=== PATIENT | female | born 1950 | race Caucasian/White ===

== ENCOUNTER 2017-03-28 07:25 | Emergency (ER) | payer MEDICARE, MEDICAID ==
--- NOTE | 2017-03-28 08:26 | EDM.PDOC ---
ED HPI GENERAL MEDICAL PROBLEM - General Chief Complaint: General Stated Complaint: NECK/SHOULDER PAIN Time Seen by Provider: 03/28/17 08:21 Source of Information: Reports: Patient History Limitations: Reports: No Limitations - History of Present Illness INITIAL COMMENTS - FREE TEXT/NARRATIVE: 66-year-old female attends the ED with chief complaint of pain in her left posterior upper shoulder. Started her so ago was quite bad last night with sharp lancinating pains in this area reading towards her left neck. The involve the anterior lateral aspect of her neck and radiate up towards her mandible but not above the mandible. Some of the pains radiating to the left upper extremity as well. The do not seem to radiate through to the chest. Patient reports that she is chronically dyspneic. She states she scheduled for CT of her chest for follow-up of a pulmonary nodule diagnosed 6 months ago. She has never been a smoker but both her parents were heavy smokers. She denies cough or sputum production fever or chills. Patient has scoliosis of her thoracic spine. Chronic generalized arthritis with previous total knees and hips bilaterally. Onset: Gradual Onset Date: 03/26/17 Duration: Day(s): Location: Reports: Other (Left posterior shoulder.) Quality: Reports: Ache, Sharp, Stabbing, Other Severity: Moderate (Recurrent sharp stabbing lancinating type pain.) Improves with: Reports: None Worsens with: Reports: Rest Context: Denies: Activity, Exercise, Lifting, Sick Contact, Trauma, Other Associated Symptoms: Reports: Malaise, Shortness of Breath. 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) (Took an Ecotrin tablet during the night.) left posterior shoulder Pain Score (Numeric/FACES): 1 - Related Data Allergies Allergy/AdvReac Type Severity Reaction Status Date / Time No Known Allergies Allergy Verified 03/28/17 07:40 Home Meds: Home Meds Aspirin 325 mg PO DAILY 03/28/17 [History] Diabetic Medication 1 injection SUBCUT ASDIRECTED 03/28/17 [History] Hydrochlorothiazide [Hydrochlorothiazide] 1 tab PO DAILY 03/28/17 [History] Lisinopril [Lisinopril] 1 tab PO DAILY 03/28/17 [History] Ranitidine [Zantac] 150 mg PO BID 03/28/17 [History] atorvaSTATin [Lipitor] 20 mg PO DAILY 03/28/17 [History] traMADol HCl [Tramadol HCl] 50 mg PO Q6H PRN #24 tablet 03/28/17 [Rx] Past Medical History HEENT History: Reports: Cataract, Impaired Vision Cardiovascular History: Reports: High Cholesterol, Hypertension, SOB on Exertion , Other (See Below) Other Cardiovascular History: chronic edema Respiratory History: Reports: Other (See Below) Other Respiratory History: states allergies Gastrointestinal History: Reports: Gastritis, GERD 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, Other (See Below) Other OB/BYN History: ovary removal, tubal ligation, bladder repair Musculoskeletal History: Reports: Arthritis, Back Pain, Chronic, Other (See Below) Other Musculoskeletal History: scoliosis Endocrine/Metabolic History: Reports: Diabetes, Type II, Obesity/BMI 30+ - Past Surgical History HEENT Surgical History: Reports: Cataract Surgery GI Surgical History: Reports: Cholecystectomy Musculoskeletal Surgical History: Reports: Other (See Below) Other Musculoskeletal Surgeries/Procedures:: pelvis surgery Social & Family History - Family History Family Medical History: Noncontributory - Tobacco Use Smoking Status *Q: Never Smoker Second Hand Smoke Exposure: No - Caffeine Use Caffeine Use: Reports: Soda - Recreational Drug Use Recreational Drug Use: No - Living Situation & Occupation Living situation: Reports: Occupation: Retired ED ROS GENERAL - Review of Systems Review Of Systems: See Below Constitutional: Reports: Malaise, Fatigue. Denies: Fever, Chills, Decreased Appetite, Weight Loss HEENT: Reports: No Symptoms Respiratory: Reports: No Symptoms (Chronically.), Shortness of Breath Cardiovascular: Reports: No Symptoms, Blood Pressure Problem (Chronically.), Dyspnea on Exertion. Denies: Claudication, Edema, Lightheadedness, Orthopnea ( Chronic hypertension), Palpitations Endocrine: Reports: No Symptoms GI/Abdominal: Reports: No Symptoms : Reports: No Symptoms Musculoskeletal: Reports: Shoulder Pain, Other (Has full unopposed range of motion of her) Skin: Reports: No Symptoms Neurological: Reports: No Symptoms Psychiatric: Reports: No Symptoms Hematologic/Lymphatic: Reports: No Symptoms ED EXAM, GENERAL - Physical Exam Exam: See Below (Has full unopposed range of motion of her arms.) Exam Limited By: No Limitations General Appearance: Alert, WD/WN, No Apparent Distress Throat/Mouth: Normal Inspection, Normal Lips, Normal Oropharynx Head: Atraumatic, Normocephalic Neck: Normal Inspection, Supple, Non-Tender, Full Range of Motion. No: Lymphadenopathy (L), Lymphadenopathy (R) Respiratory/Chest: No Respiratory Distress, Lungs Clear, Normal Breath Sounds, Chest Non-Tender Cardiovascular: Normal Peripheral Pulses, Regular Rate, Rhythm, No Edema, No Gallop, No Murmur Peripheral Pulses: 1+: Posterior Tibial (L), Posterior Tibial (R), Dorsalis Pedis (L), Dorsalis Pedis (R) GI/Abdominal: Normal Bowel Sounds, Soft, Non-Tender, No Organomegaly, Other ( Moderately obese.) Back Exam: Other (Scoliosis of thoracic spine spine concave to the). No: CVA Tenderness (L) ( right.), CVA Tenderness (R) Extremities: Normal Inspection, Normal Range of Motion, Non-Tender, No Pedal Edema, Other (His full unopposed range of motion of both shoulders. Pain is localized to the superior aspect of the left upper back in the distribution of the rhomboid muscle. Range of motion of her cervical spine is fair although she has loss of 5 of flexion bilaterally as well as extension.) Neurological: Alert, Oriented, CN II-XII Intact, Normal Cognition Psychiatric: Normal Affect, Normal Mood Skin Exam: Warm, Dry, Intact, Normal Color, No Rash EKG INTERPRETATION EKG Date: 03/28/17 Time: 09:35 Rhythm: NSR Rate (Beats/Min): 82 Hext: Normal P-Wave: Present QRS: Other (Slightly decreased voltage in the limb leads.) ST-T: Normal QT: Normal EKG Interpretation Comments: Other than occasional PACs this is a normal ECG without any signs of ischemia. Slightly decreased voltage in the limb leads. Course - Vital Signs Last Recorded V/S: Last Vital Signs Temp 36.4 C 03/28/17 07:31 Pulse 85 03/28/17 09:00 Resp 16 03/28/17 07:31 BP 157/75 H 03/28/17 09:00 Pulse Ox 100 03/28/17 07:31 - Orders/Labs/Meds Labs: Laboratory Tests 03/28/17 03/28/17 Range/Units 09:35 09:35 WBC 8.90 (3.98-10.04) K/mm3 RBC 4.55 (3.98-5.22) M/mm3 Hgb 13.5 (11.2-15.7) gm/L Hct 41.4 (34.1-44.9) % MCV 91.0 (79.4-94.8) fl MCH 29.7 (25.6-32.2) pg MCHC 32.6 (32.2-35.5) g/dl RDW Std Deviation 43.5 (36.4-46.3) fL Plt Count 321 (182-369) K/mm3 MPV 10.4 (9.4-12.3) fl Neutrophils % (Manual) 50 (40-60) % Band Neutrophils % 0 (0-10) % Lymphocytes % (Manual) 46 H (20-40) % Atypical Lymphs % 0 % Monocytes % (Manual) 2 (2-10) % Eosinophils % (Manual) 0 L (0.7-5.8) % Basophils % (Manual) 2 H (0.1-1.2) Platelet Estimate Adequate RBC Morph Comment Normal Sodium 144 (136-145) mEq/L Potassium 3.8 (3.5-5.1) mEq/L Chloride 106 (98-107) mEq/L Carbon Dioxide 26 (21-32) mEq/L Anion Gap 15.8 H (5-15) BUN 15 (7-18) mg/dL Creatinine 0.8 (0.55-1.02) mg/dL Est Cr Clr Drug Dosing 72.29 mL/min Estimated GFR (MDRD) > 60 (>60) mL/min BUN/Creatinine Ratio 18.8 H (14-18) Glucose 187 H (80-115) mg/dL Calcium 9.5 (8.5-10.1) mg/dL Total Bilirubin 0.4 (0.2-1.0) mg/dL AST 38 H (15-37) U/L ALT 36 (14-59) U/L Alkaline Phosphatase 159 H (46-116) U/L CK-MB (CK-2) < 0.5 (0-3.6) ng/ml Troponin I < 0.017 (0.00-0.056) ng/mL Total Protein 7.6 (6.4-8.2) g/dl Albumin 3.6 (3.4-5.0) g/dl Globulin 4.0 gm/dL Albumin/Globulin Ratio 0.9 L (1-2) - Radiology Interpretation Free Text/Narrative:: 66-year-old female brought to the ED for evaluation of left upper shoulder pain. Examinations suggesting musculoskeletal source or pain and no cardiac history or evidence of involvement at this time. Lungs are clear. Plan x-ray of the left shoulder to be done. - Re-Assessments/Exams Free Text/Narrative Re-Assessment/Exam: 03/28/17 09:36 patient advised of the x-ray of her left shoulder is within normal limits. I do see some degenerative changes in her cervical spine. She reports now that there seems to be more pressure in her central chest and she is worried about cardiac etiology. She lives quite far to [facility] and is apprehensive in this regard. I therefore an ECG will be performed as well as lab work to rule out any cardiac illness which I'm very doubtful low. Be very a characteristic of cardiac etiology. 03/28/17 11:14 ECG reveals sinus rhythm at 82/m there is the occasional PAC appreciated. This is otherwise a normal ECG. Labs reveal a white count of 8.90 with a normal differential of 50% neutrophils and 46% lymphocytes. Hemoglobin is 13.5 hematocrit is 41.4 platelets are 321,000. Sodium 144 potassium 3.8 chloride 16 bicarbonate is 26 and a gap is 15.8. Blood sugar is 187. AST is 38 ALT is 36. Alk phosphatase mildly elevated 159 bilirubin normal at 0.4. CK-MB fraction is 0.5 troponin is less than 0.017. 03/28/17 11:35 all the cardiac markers came back normal as did the chest x- ray. There is no evidence of any heart related illness as I suspected clinically. Patient reassured at length. patient has a history of gastritis and does not do well with NSAIDs. I will therefore give her tramadol 50 mg every 6 hours. For pain relief 20 tabs. Departure - Departure Time of Disposition: 11:45 Disposition: Home, Self-Care 01 Condition: Fair Clinical Impression: Upper back pain on left side - Discharge Information Prescriptions: traMADol HCl [Tramadol HCl] 50 mg PO Q6H PRN #24 tablet PRN Reason: Pain left shoulder Instructions: Back Pain, Adult, [id number] Referrals: Kamla Peña MD [Primary Care Provider] - Forms: ED Department Discharge Additional Instructions: Evaluation in the emergency room today in regards to development of left upper posterior shoulder pain which appears to be musculoskeletal in origin. Appears to be coming from the rhomboid muscle up underneath the trapezius muscle and does radiate towards the left side of the neck intermittently. Cardiac workup reveals no evidence of heart related illness. X-ray of the left shoulder shows minor degenerative changes in the true shoulder joint but nothing abnormal in the shoulder blade which is the area of your pain. Therefore treatment is to be heat to the area one half hour out of every 4 hours until better. Tramadol 50 mg tablet every 6 hours needed for pain relief. Continue all other medications as per your usual. Follow-up with personal care physician if any further problem 's occur.
--- NOTE | 2017-03-28 10:53 | CR ---
Left shoulder: Four views of the left shoulder were obtained. Comparison: No prior shoulder study. Joint space narrowing and mild inferior and superior spurring is seen within the acromioclavicular joint. Ossification is noted within portions of the coracoclavicular ligament. Mild deformity is noted within the shaft of the clavicle likely representing old healed fracture. Minimal inferior spur is noted off the humeral head. No acute fracture, dislocation or other bony abnormality is seen. Impression: 1. Slight degenerative change as described above. Other incidental findings. Diagnostic code #2
== END 2017-03-28 12:05 | disposition home or self-care (01) ==
LOC: JD.ED 07:25
DX: M54.6 Pain in thoracic spine (principal); I10 Essential (primary) hypertension; E78.00 Pure hypercholesterolemia, unspecified; E11.9 Type 2 diabetes mellitus without complications; Z79.84 Long term (current) use of oral hypoglycemic drugs; Z79.82 Long term (current) use of aspirin; Z79.899 Other long term (current) drug therapy
CPT/HCPCS: 36415; 73030-26-LT; 73030-LT; 80053; 82553; 84484; 85025; 93005; 93010; 99283; 99284-25

== ENCOUNTER 2017-05-23 08:06 | Emergency (ER) | payer MEDICARE, MEDICAID ==
--- NOTE | 2017-05-23 09:56 | EDM.PDOC ---
ED HPI GENERAL MEDICAL PROBLEM - General Chief Complaint: Diabetic Complaint Stated Complaint: HIGH BLOOD SUGAR Time Seen by Provider: 05/23/17 08:20 Source of Information: Reports: Patient History Limitations: Reports: No Limitations - History of Present Illness INITIAL COMMENTS - FREE TEXT/NARRATIVE: The patient presents with elevated blood sugar. She is a type II diabetic and she was on an injectable medicine weakly but she ran out and it is very expensive. She noticed her blood sugars are creeping up and last night her sugar was 223. She took some metformin she had at home. She has been feeling tired. She denies polyuria and polydypsia. She denies fever, chills, cough, chest pain, shortness of breath, abdominal pain, nausea or vomiting. She has an appointment with her doctor on Saturday. Her doctor is Dr Peña at our clinic. Onset: Gradual Duration: Day(s): Severity: Mild Improves with: Reports: None Worsens with: Reports: None Associated Symptoms: Reports: No Other Symptoms - Related Data Allergies Allergy/AdvReac Type Severity Reaction Status Date / Time No Known Allergies Allergy Verified 05/23/17 08:20 Home Meds: Home Meds Hydrochlorothiazide [Hydrochlorothiazide] 25 mg PO DAILY 03/28/17 [History] Lisinopril [Lisinopril] 5 mg PO DAILY 03/28/17 [History] Ranitidine [Zantac] 150 mg PO BID PRN 03/28/17 [History] atorvaSTATin [Lipitor] 20 mg PO DAILY 03/28/17 [History] Cholecalciferol (Vitamin D3) [Vitamin D3] 1,000 unit PO DAILY 05/23/17 [History] Exenatide Microspheres [Bydureon] 2 mg SUBCUT WEEKLY 05/23/17 [History] Potassium Chloride [Klor-Con M20] 20 meq PO DAILY 05/23/17 [History] metFORMIN [Glucophage XR] 500 mg PO BID 05/23/17 [History] Past Medical History HEENT History: Reports: Cataract, Impaired Vision Cardiovascular History: Reports: High Cholesterol, Hypertension, SOB on Exertion , Other (See Below) Other Cardiovascular History: chronic edema Respiratory History: Reports: Other (See Below) Other Respiratory History: states allergies Gastrointestinal History: Reports: Gastritis, GERD 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, Other (See Below) Other OB/BYN History: ovary removal, tubal ligation, bladder repair Musculoskeletal History: Reports: Arthritis, Back Pain, Chronic, Other (See Below) Other Musculoskeletal History: scoliosis Endocrine/Metabolic History: Reports: Diabetes, Type II, Obesity/BMI 30+ - Past Surgical History HEENT Surgical History: Reports: Cataract Surgery GI Surgical History: Reports: Cholecystectomy Musculoskeletal Surgical History: Reports: Other (See Below) Other Musculoskeletal Surgeries/Procedures:: pelvis surgery Social & Family History - Family History Family Medical History: Noncontributory - Tobacco Use Smoking Status *Q: Never Smoker Second Hand Smoke Exposure: No - Caffeine Use Caffeine Use: Reports: Coffee - Recreational Drug Use Recreational Drug Use: No - Living Situation & Occupation Living situation: Reports: Occupation: Retired ED ROS GENERAL - Review of Systems Review Of Systems: See Below Constitutional: Reports: Weakness. Denies: Fever, Chills HEENT: Reports: No Symptoms Respiratory: Reports: No Symptoms Cardiovascular: Reports: No Symptoms Endocrine: Reports: No Symptoms GI/Abdominal: Reports: No Symptoms : Reports: No Symptoms Musculoskeletal: Reports: No Symptoms Neurological: Reports: No Symptoms ED EXAM GENERAL NO PERIP PULSE - Physical Exam Exam: See Below Exam Limited By: No Limitations General Appearance: Alert, No Apparent Distress Ears: Normal External Exam Nose: Normal Inspection Head: Atraumatic, Normocephalic Neck: Normal Inspection Respiratory/Chest: No Respiratory Distress, Lungs Clear, Normal Breath Sounds Cardiovascular: Regular Rate, Rhythm, No Edema, No Murmur GI/Abdominal: Soft, Non-Tender, No Organomegaly, No Mass Back Exam: Normal Inspection Extremities: Normal Inspection Neurological: Alert, Oriented, No Motor/Sensory Deficits Course - Vital Signs Last Recorded V/S: Last Vital Signs Temp 97.9 F 05/23/17 08:11 Pulse 91 05/23/17 08:11 Resp 16 05/23/17 08:11 BP 135/79 05/23/17 08:11 Pulse Ox 97 05/23/17 08:11 - Orders/Labs/Meds Orders: Active Orders 24 hr Category Date Time Status Cardiac Monitoring [RC] . DIRECTED Care 05/23/17 08:23 Active Labs: Laboratory Tests 05/23/17 05/23/17 05/23/17 Range/Units 08:12 08:40 08:40 WBC 8.63 (3.98-10.04) K/mm3 RBC 4.51 (3.98-5.22) M/mm3 Hgb 13.4 (11.2-15.7) gm/L Hct 41.4 (34.1-44.9) % MCV 91.8 (79.4-94.8) fl MCH 29.7 (25.6-32.2) pg MCHC 32.4 (32.2-35.5) g/dl RDW Std Deviation 43.1 (36.4-46.3) fL Plt Count 339 (182-369) K/mm3 MPV 9.8 (9.4-12.3) fl Neut % (Auto) 51.9 (34.0-71.1) % Lymph % (Auto) 38.6 (19.3-51.7) % P[place] % (Auto) 4.6 L (4.7-12.5) % Eos % (Auto) 4.5 (0.7-5.8) Baso % (Auto) 0.3 (0.1-1.2) % Neut # (Auto) 4.47 (1.56-6.13) K/mm3 Lymph # (Auto) 3.33 (1.18-3.74) K/mm3 P[place] # (Auto) 0.40 H (0.24-0.36) K/mm3 Eos # (Auto) 0.39 H (0.04-0.36) K/mm3 Baso # (Auto) 0.03 (0.01-0.08) K/mm3 Sodium 140 (136-145) mEq/L Potassium 4.2 (3.5-5.1) mEq/L Chloride 103 (98-107) mEq/L Carbon Dioxide 27 (21-32) mEq/L Anion Gap 14.2 (5-15) BUN 15 (7-18) mg/dL Creatinine 0.9 (0.55-1.02) mg/dL Est Cr Clr Drug Dosing 66.49 mL/min Estimated GFR (MDRD) > 60 (>60) mL/min BUN/Creatinine Ratio 16.7 (14-18) Glucose 156 H (80-115) mg/dL POC Glucose 157 H (80-115) mg/dL Hemoglobin A1c (4.50-6.20) % Calcium 9.1 (8.5-10.1) mg/dL Total Bilirubin 0.4 (0.2-1.0) mg/dL AST 39 H (15-37) U/L ALT 51 (14-59) U/L Alkaline Phosphatase 213 H (46-116) U/L Total Protein 7.7 (6.4-8.2) g/dl Albumin 3.6 (3.4-5.0) g/dl Globulin 4.1 gm/dL Albumin/Globulin Ratio 0.9 L (1-2) 05/23/17 Range/Units 08:40 WBC (3.98-10.04) K/mm3 RBC (3.98-5.22) M/mm3 Hgb (11.2-15.7) gm/L Hct (34.1-44.9) % MCV (79.4-94.8) fl MCH (25.6-32.2) pg MCHC (32.2-35.5) g/dl RDW Std Deviation (36.4-46.3) fL Plt Count (182-369) K/mm3 MPV (9.4-12.3) fl Neut % (Auto) (34.0-71.1) % Lymph % (Auto) (19.3-51.7) % Pinal % (Auto) (4.7-12.5) % Eos % (Auto) (0.7-5.8) Baso % (Auto) (0.1-1.2) % Neut # (Auto) (1.56-6.13) K/mm3 Lymph # (Auto) (1.18-3.74) K/mm3 Pinal # (Auto) (0.24-0.36) K/mm3 Eos # (Auto) (0.04-0.36) K/mm3 Baso # (Auto) (0.01-0.08) K/mm3 Sodium (136-145) mEq/L Potassium (3.5-5.1) mEq/L Chloride (98-107) mEq/L Carbon Dioxide (21-32) mEq/L Anion Gap (5-15) BUN (7-18) mg/dL Creatinine (0.55-1.02) mg/dL Est Cr Clr Drug Dosing mL/min Estimated GFR (MDRD) (>60) mL/min BUN/Creatinine Ratio (14-18) Glucose (80-115) mg/dL POC Glucose (80-115) mg/dL Hemoglobin A1c 7.80 H (4.50-6.20) % Calcium (8.5-10.1) mg/dL Total Bilirubin (0.2-1.0) mg/dL AST (15-37) U/L ALT (14-59) U/L Alkaline Phosphatase (46-116) U/L Total Protein (6.4-8.2) g/dl Albumin (3.4-5.0) g/dl Globulin gm/dL Albumin/Globulin Ratio (1-2) - Re-Assessments/Exams Free Text/Narrative Re-Assessment/Exam: 05/23/17 09:56 Bed side glucose was 157. Her labs show a normal CBC and her blood sugar was 156. Her AST was 39. His alk phos was elevated at 213. Her Hgb A1C was elevated at 7.8. Departure - Departure Time of Disposition: 10:15 Disposition: Home, Self-Care 01 Condition: Good Clinical Impression: Hyperglycemia - Discharge Information Instructions: Type 2 Diabetes Mellitus, Adult, Ofcy-za-Bura Referrals: Kamla Peña MD [Primary Care Provider] - Forms: ED Department Discharge Additional Instructions: Take your medication as prescribed. Take the metformin 500mg by mouth 2 times per day. Follow up with Dr Peña next week. Please return if you are worse or if you blood sugars are consistently above 300. - My Orders Last 24 Hours: My Active Orders 05/23/17 08:23 Cardiac Monitoring [RC] . DIRECTED - Assessment/Plan Last 24 Hours: My Active Orders 05/23/17 08:23 Cardiac Monitoring [RC] . DIRECTED
== END 2017-05-23 10:32 | disposition home or self-care (01) ==
LOC: JD.ED 08:06
DX: E11.65 Type 2 diabetes mellitus with hyperglycemia (principal); E78.00 Pure hypercholesterolemia, unspecified; I10 Essential (primary) hypertension; Z79.899 Other long term (current) drug therapy; Z79.84 Long term (current) use of oral hypoglycemic drugs
CPT/HCPCS: 36415; 80053; 82962; 83036; 85025; 99283

== ENCOUNTER 2017-09-16 09:37 | Emergency (ER) | payer MEDICARE, OTHER ==
[2017-09-16] MEDS ORDERED: Sodium Chloride 0.9% 10 ML Syringe FLUSH PRN (10:11)
[2017-09-16] MEDS ORDERED: Aspirin 81 MG Tab.Chew ONE (10:15)
[2017-09-16] MEDS ORDERED: Aspirin 81 MG Tab.Chew PO ONE (10:17)
--- NOTE | 2017-09-16 10:31 | EDM.PDOC ---
ED HPI GENERAL MEDICAL PROBLEM - General Chief Complaint: Chest Pain Stated Complaint: [facility] Time Seen by Provider: 09/16/17 10:31 - History of Present Illness INITIAL COMMENTS - FREE TEXT/NARRATIVE: 66-year-old female brought in by EMS with chest pain. Patient developed a burning-like sensation in the substernal area. She awoke this way. The patient's had a history of reflux in the past but this feels different. This pain does not radiate into her neck or arms remained substernal. Upon arrival here her pain is nearly gone she has a mild discomfort that she describes as a burning yet different from reflux she's had the past. She has no history of coronary artery disease significant pulmonary disease or chest problems. - Related Data Allergies Allergy/AdvReac Type Severity Reaction Status Date / Time No Known Allergies Allergy Verified 09/16/17 09:44 Home Meds: Home Meds Hydrochlorothiazide 25 mg PO DAILY 03/28/17 [History] Lisinopril 5 mg PO DAILY 03/28/17 [History] Ranitidine [Zantac] 150 mg PO BID PRN 03/28/17 [History] atorvaSTATin [Lipitor] 20 mg PO DAILY 03/28/17 [History] Cholecalciferol (Vitamin D3) [Vitamin D3] 1,000 unit PO DAILY 05/23/17 [History] metFORMIN [Glucophage XR] 500 mg PO TID 05/23/17 [History] Past Medical History HEENT History: Reports: Cataract, Impaired Vision Cardiovascular History: Reports: High Cholesterol, Hypertension, SOB on Exertion , Other (See Below) Other Cardiovascular History: chronic edema Respiratory History: Reports: Other (See Below) Other Respiratory History: states allergies Gastrointestinal History: Reports: Gastritis, GERD 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, Other (See Below) Other OB/BYN History: ovary removal, tubal ligation, bladder repair Musculoskeletal History: Reports: Arthritis, Back Pain, Chronic, Other (See Below) Other Musculoskeletal History: scoliosis Endocrine/Metabolic History: Reports: Diabetes, Type II, Obesity/BMI 30+ - Past Surgical History HEENT Surgical History: Reports: Cataract Surgery GI Surgical History: Reports: Cholecystectomy Musculoskeletal Surgical History: Reports: Hip Replacement, Knee Replacement, Other (See Below) Other Musculoskeletal Surgeries/Procedures:: pelvis surgery Social & Family History - Family History Family Medical History: Noncontributory - Tobacco Use Smoking Status *Q: Never Smoker Second Hand Smoke Exposure: No - Caffeine Use Caffeine Use: Reports: Coffee - Recreational Drug Use Recreational Drug Use: No - Living Situation & Occupation Living situation: Reports: Occupation: Retired ED ROS GENERAL - Review of Systems Review Of Systems: See Below Constitutional: Reports: No Symptoms HEENT: Reports: No Symptoms Respiratory: Reports: No Symptoms Cardiovascular: Reports: Chest Pain Endocrine: Reports: No Symptoms GI/Abdominal: Reports: Other (Possible reflux no nausea vomiting diarrhea or constipation) : Reports: No Symptoms Musculoskeletal: Reports: No Symptoms Skin: Reports: No Symptoms Neurological: Reports: No Symptoms Psychiatric: Reports: No Symptoms Hematologic/Lymphatic: Reports: No Symptoms Immunologic: Reports: No Symptoms ED EXAM, GENERAL - Physical Exam Exam: See Below Exam Limited By: No Limitations General Appearance: Alert, No Apparent Distress Head: Atraumatic, Normocephalic Neck: Normal Inspection, Supple, Non-Tender, Full Range of Motion. No: Lymphadenopathy (L), Lymphadenopathy (R) Respiratory/Chest: No Respiratory Distress, Lungs Clear, Normal Breath Sounds Cardiovascular: Normal Peripheral Pulses, Regular Rate, Rhythm, No Edema, No JVD , No Murmur GI/Abdominal: Normal Bowel Sounds, Soft, Non-Tender Back Exam: Normal Inspection. No: CVA Tenderness (L), CVA Tenderness (R) Extremities: Normal Inspection, No Pedal Edema, Other (She has some discomfort with palpation she attributes this to her neuropathy) Neurological: Alert, Oriented, Normal Cognition Psychiatric: Normal Affect Skin Exam: Warm, Dry, Intact Lymphatic: No Adenopathy EKG INTERPRETATION EKG Date: 09/16/17 Rhythm: NSR [place]: Normal P-Wave: Present QRS: Normal ST-T: Other (Nonspecific nondiagnostic changes laterally most likely due to artifact) QT: Normal Comparison: No Change (Significant changes other than the comparison EKG from February of this last year had one PAC and less artifact) Course - Vital Signs Last Recorded V/S: Last Vital Signs Temp 36.9 C 09/16/17 09:48 Pulse 87 09/16/17 09:48 Resp 13 09/16/17 09:48 BP 151/75 H 09/16/17 09:48 Pulse Ox 100 09/16/17 09:48 - Orders/Labs/Meds Orders: Active Orders 24 hr Category Date Time Status Cardiac Monitoring [RC] . DIRECTED Care 09/16/17 10:08 Active EKG 12 Lead [EKG Documentation Completion] [RC] STAT Care 09/16/17 10:09 Active Sodium Chloride 0.9% [Saline Flush] Med 09/16/17 10:11 Active 10 ml FLUSH ASDIRECTED PRN Saline Lock Insert [OM.PC] Routine Oth 09/16/17 10:11 Ordered Medication Orders Sodium Chloride (Saline Flush) 10 ml FLUSH ASDIRECTED PRN PRN Reason: Keep Vein Open Last Admin: 09/16/17 10:15 Dose: 10 ml Labs: Laboratory Tests 09/16/17 09/16/17 09/16/17 Range/Units 10:00 10:00 10:00 WBC 10.03 (3.98-10.04) K/mm3 RBC 4.34 (3.98-5.22) M/mm3 Hgb 13.0 (11.2-15.7) gm/L Hct 40.3 (34.1-44.9) % MCV 92.9 (79.4-94.8) fl MCH 30.0 (25.6-32.2) pg MCHC 32.3 (32.2-35.5) g/dl RDW Std Deviation 43.4 (36.4-46.3) fL Plt Count 352 (182-369) K/mm3 MPV 10.4 (9.4-12.3) fl Neutrophils % (Manual) 59 (40-60) % Band Neutrophils % 0 (0-10) % Lymphocytes % (Manual) 33 (20-40) % Atypical Lymphs % 0 % Monocytes % (Manual) 1 L (2-10) % Eosinophils % (Manual) 6 H (0.7-5.8) % Basophils % (Manual) 1 (0.1-1.2) Platelet Estimate Adequate RBC Morph Comment Normal PT 10.2 (9.5-12.1) SECONDS INR 0.93 APTT 25 (24-31) SECONDS Sodium (136-145) mEq/L Potassium (3.5-5.1) mEq/L Chloride (98-107) mEq/L Carbon Dioxide (21-32) mEq/L Anion Gap (5-15) BUN (7-18) mg/dL Creatinine (0.55-1.02) mg/dL Est Cr Clr Drug Dosing mL/min Estimated GFR (MDRD) (>60) mL/min BUN/Creatinine Ratio (14-18) Glucose (80-115) mg/dL Calcium (8.5-10.1) mg/dL Total Bilirubin (0.2-1.0) mg/dL AST (15-37) U/L ALT (14-59) U/L Alkaline Phosphatase (46-116) U/L CK-MB (CK-2) < 0.5 (0-3.6) ng/ml Troponin I < 0.017 (0.00-0.056) ng/mL NT-Pro-B Natriuret Pep (0-125) pg/mL Total Protein (6.4-8.2) g/dl Albumin (3.4-5.0) g/dl Globulin gm/dL Albumin/Globulin Ratio (1-2) 09/16/17 09/16/17 09/16/17 Range/Units 10:00 10:00 13:10 WBC (3.98-10.04) K/mm3 RBC (3.98-5.22) M/mm3 Hgb (11.2-15.7) gm/L Hct (34.1-44.9) % MCV (79.4-94.8) fl MCH (25.6-32.2) pg MCHC (32.2-35.5) g/dl RDW Std Deviation (36.4-46.3) fL Plt Count (182-369) K/mm3 MPV (9.4-12.3) fl Neutrophils % (Manual) (40-60) % Band Neutrophils % (0-10) % Lymphocytes % (Manual) (20-40) % Atypical Lymphs % % Monocytes % (Manual) (2-10) % Eosinophils % (Manual) (0.7-5.8) % Basophils % (Manual) (0.1-1.2) Platelet Estimate RBC Morph Comment PT (9.5-12.1) SECONDS INR APTT (24-31) SECONDS Sodium 142 (136-145) mEq/L Potassium 3.7 (3.5-5.1) mEq/L Chloride 104 (98-107) mEq/L Carbon Dioxide 29 (21-32) mEq/L Anion Gap 12.7 (5-15) BUN 17 (7-18) mg/dL Creatinine 0.9 (0.55-1.02) mg/dL Est Cr Clr Drug Dosing 64.26 mL/min Estimated GFR (MDRD) > 60 (>60) mL/min BUN/Creatinine Ratio 18.9 H (14-18) Glucose 151 H (80-115) mg/dL Calcium 9.2 (8.5-10.1) mg/dL Total Bilirubin 0.4 (0.2-1.0) mg/dL AST 33 (15-37) U/L ALT 41 (14-59) U/L Alkaline Phosphatase 163 H (46-116) U/L CK-MB (CK-2) (0-3.6) ng/ml Troponin I < 0.017 (0.00-0.056) ng/mL NT-Pro-B Natriuret Pep 43 (0-125) pg/mL Total Protein 7.6 (6.4-8.2) g/dl Albumin 3.7 (3.4-5.0) g/dl Globulin 3.9 gm/dL Albumin/Globulin Ratio 1.0 (1-2) Meds: Medications Generic Name Dose Route Start Last Admin Trade Name Freq PRN Reason Stop Dose Admin Sodium Chloride 10 ml 09/16/17 10:11 09/16/17 10:15 Saline Flush FLUSH 10 ml ASDIRECTED PRN Administration Keep Vein Open Discontinued Medications Generic Name Dose Route Start Last Admin Trade Name Freq PRN Reason Stop Dose Admin Aspirin 324 mg 09/16/17 21:00 Aspirin PO BEDTIME KLARISSA Aspirin Confirm 09/16/17 10:15 09/16/17 10:19 Aspirin Administered 09/16/17 10:16 Not Given Dose 324 mg .ROUTE .STK-MED ONE Aspirin 324 mg 09/16/17 10:17 09/16/17 10:19 Aspirin PO 09/16/17 10:18 324 mg ONETIME ONE Administration Al Hydroxide/Mg Hydroxide 30 0 ml 09/16/17 12:02 09/16/17 12:15 ml/ Lidocaine HCl 15 ml PO 09/16/17 12:03 45 ml ONETIME ONE Administration - Re-Assessments/Exams Free Text/Narrative Re-Assessment/Exam: 09/16/17 12:12 Recent still has a mild burning sensation in her chest with try GI cocktail chest x-ray nondiagnostic labs negative 09/16/17 14:42 The GI cocktail helped. Second troponin is negative. At this point patient be discharged home follow-up with her regular physician I recommend cardiac stress testing. Also she uses ranitidine on a as necessary basis she should start taking this 150 mg twice daily. Departure - Departure Time of Disposition: 14:44 Disposition: Home, Self-Care 01 Clinical Impression: GERD (gastroesophageal reflux disease), Chest pain Referrals: Kamla Peña MD [Primary Care Provider] - Forms: ED Department Discharge Additional Instructions: Return to the emergency room with any questions problems worsening symptoms. Follow-up with your regular physician the end of this week. Discuss getting a heart stress test. Take a baby aspirin daily this is the 81 mg aspirin. Take your ranitidine 150 mg twice daily. - My Orders Last 24 Hours: My Active Orders 09/16/17 10:08 Cardiac Monitoring [RC] . DIRECTED 09/16/17 10:09 EKG 12 Lead [EKG Documentation Completion] [RC] STAT 09/16/17 10:11 Sodium Chloride 0.9% [Saline Flush] 10 ml FLUSH ASDIRECTED PRN Saline Lock Insert [OM.PC] Routine - Assessment/Plan Last 24 Hours: My Active Orders 09/16/17 10:08 Cardiac Monitoring [RC] . DIRECTED 09/16/17 10:09 EKG 12 Lead [EKG Documentation Completion] [RC] STAT 09/16/17 10:11 Sodium Chloride 0.9% [Saline Flush] 10 ml FLUSH ASDIRECTED PRN Saline Lock Insert [OM.PC] Routine
[2017-09-16] MEDS ORDERED: Alum Hydrox/Mag Hydrox/Simeth 30 ML, Lidocaine 2% 15 ML PO ONE ×2 (12:02)
--- NOTE | 2017-09-16 12:05 | CR ---
Chest: Frontal view of the chest was obtained. Comparison: Prior chest x-ray of of 03/13/[address] of 04/03/17. Findings: Heart size appears within normal limits. Tortuous thoracic aorta is seen. Lungs are clear and no acute parenchymal densities. Ossification is seen within the left coracoclavicular ligament. Joint space narrowing is seen within the left acromioclavicular joint. Surgical clips are seen within the upper abdomen. Impression: 1. Incidental findings. Nothing acute is seen. Diagnostic code #2
[2017-09-16] MEDS ORDERED: Aspirin 81 MG Tab.Chew PO SCH (21:00)
== END 2017-09-16 15:00 | disposition home or self-care (01) ==
LOC: JD.ED 09:37 → SUPCPDRO 09:37 → JD.ED 15:00
DX: K21.9 Gastro-esophageal reflux disease without esophagitis (principal); I10 Essential (primary) hypertension; E78.00 Pure hypercholesterolemia, unspecified; E11.9 Type 2 diabetes mellitus without complications; E66.9 Obesity, unspecified; Z79.899 Other long term (current) drug therapy; Z79.84 Long term (current) use of oral hypoglycemic drugs
CPT/HCPCS: 36415; 71045; 80053; 82553; 83880; 84484; 85007; 85027; 85610; 85730; 93005; 99285; A9270; J7050; 93010; 99283-25

== ENCOUNTER 2017-12-31 19:23 | Emergency (ER) | payer MEDICARE, OTHER ==
[2017-12-31] MEDS ORDERED: Ondansetron 4 MG/2 ML SDV IVPUSH ONE (19:56)
[2017-12-31] MEDS ORDERED: Morphine 4 MG/ML Syringe IVPUSH ONE (19:56)
[2017-12-31] MEDS ORDERED: Sodium Chloride 0.9% 1,000 ML IV ONE (19:56)
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
[2017-12-31] MEDS ORDERED: Diatrizoate Meglumine/Diatrizoate Sodium 37% 120 ML Bottle PO ONE (21:46)
[2017-12-31] MEDS ORDERED: Iopamidol 612 MG/ML 150 ML Bottle IVPUSH ONE (21:46)
--- NOTE | 2018-01-02 08:51 | CT ---
CT abdomen and pelvis Technique: Multiple axial sections were obtained from above the dome of the diaphragm inferiorly through the pubic symphysis. Intravenous and oral contrast was utilized. Delayed images were obtained through the bladder. Comparison: No prior CT abdomen or pelvis exam is available. Findings: Visualized lung bases show nothing acute. Liver shows no focal parenchymal abnormality. Small hiatal hernia is seen with slight gastroesophageal reflux of contrast. Splenic tissue is noted. Configuration of the spleen is abnormal likely representing prior surgery. Surgical clips are seen within the left upper abdomen. Adrenal glands show no nodule. Kidneys show symmetric contrast enhancement without hydronephrosis or mass. Pancreas is within normal limits. Aorta shows no aneurysmal dilatation. No retroperitoneal adenopathy or mesenteric abnormalities are seen. Surgical material is seen within the anterior abdominal wall. No pelvic mass or adenopathy is seen. No free fluid is seen. Mild increased stool is noted within the colon. Artifact is noted from bilateral hip prosthesis. Old bilateral pubic rami fractures are seen. Scattered degenerative change is noted within the spine. Delayed images show contrast within the bladder. Impression: 1. Slight increased stool within the colon. 2. Other incidental findings. Nothing acute is seen on CT study of the abdomen and pelvis. Diagnostic code #2 I agree with preliminary report from [facility], finalized on 12/31/17, 11:15 PM Central Time
== END 2017-12-31 22:42 | disposition home or self-care (01) ==
LOC: JD.ED 19:23
DX: R10.13 Epigastric pain (principal); I10 Essential (primary) hypertension; E66.9 Obesity, unspecified; E11.9 Type 2 diabetes mellitus without complications; Z79.82 Long term (current) use of aspirin; Z79.84 Long term (current) use of oral hypoglycemic drugs; Z79.899 Other long term (current) drug therapy
CPT/HCPCS: 36415; 74177; 80053; 81001; 83690; 85025; 93005; 96361; 96374; 96375; 99285; J2270; J2405; J7040; Q9963; Q9967; 93010; 99284-25

== ENCOUNTER 2018-09-30 05:41 | Emergency (ER) | payer MEDICARE, OTHER ==
--- NOTE | 2018-09-30 06:52 | EDM.PDOC ---
ED HPI GENERAL MEDICAL PROBLEM - General Chief Complaint: Chest Pain Stated Complaint: PAIN IN LEFT SIDE OF BODY HEAD AND NECK SOB Time Seen by Provider: 09/30/18 06:01 Source of Information: Reports: Patient, RN Notes Reviewed - History of Present Illness INITIAL COMMENTS - FREE TEXT/NARRATIVE: 68-year-old female states she had an episode of "burning type discomfort left chest shoulder and arm this morning a short time ago. This lasted about 10-15 minutes. She states she did have a couple of similar briefer episodes of discomfort a few days ago. He does have history of hypertension and type 2 diabetes. She has no personal history of coronary artery disease. She does not smoke. She has no current discomfort at this time. She has not recently been ill. She denies feeling short of breath. Left Chest Pain Score (Numeric/FACES): 1 - Related Data Allergies Allergy/AdvReac Type Severity Reaction Status Date / Time No Known Allergies Allergy Verified 09/30/18 05:49 Home Meds: Home Meds Lisinopril 5 mg PO DAILY 03/28/17 [History] hydroCHLOROthiazide [Hydrochlorothiazide] 25 mg PO DAILY 03/28/17 [History] Cholecalciferol (Vitamin D3) [Vitamin D3] 1,000 unit PO DAILY 05/23/17 [History] metFORMIN [Glucophage XR] 500 mg PO BID 05/23/17 [History] Aspirin 81 mg PO DAILY 12/31/17 [History] Rosuvastatin [Crestor] 10 mg PO DAILY 12/31/17 [History] Past Medical History HEENT History: Reports: Cataract, Impaired Vision Cardiovascular History: Reports: High Cholesterol, Hypertension, SOB on Exertion , Other (See Below) Other Cardiovascular History: chronic edema Respiratory History: Reports: SOB, Other (See Below) Other Respiratory History: states allergies Gastrointestinal History: Reports: Chronic Constipation, Gastritis, GERD [employer] History: Reports: Endometrial Ablation, Other (See Below) Other [employer] History: ovary removal, tubal ligation, bladder repair Musculoskeletal History: Reports: Arthritis, Back Pain, Chronic, Other (See Below) Other Musculoskeletal History: scoliosis Endocrine/Metabolic History: Reports: Diabetes, Type II, Obesity/BMI 30+ Other Hematologic History: baby aspirin Oncologic (Cancer) History: Reports: Cervix - Past Surgical History HEENT Surgical History: Reports: Cataract Surgery GI Surgical History: Reports: Cholecystectomy Musculoskeletal Surgical History: Reports: Hip Replacement, Knee Replacement, Other (See Below) Other Musculoskeletal Surgeries/Procedures:: pelvis surgery Social & Family History - Family History Family Medical History: Noncontributory - Tobacco Use Smoking Status *Q: Never Smoker - Caffeine Use Caffeine Use: Reports: Soda - Recreational Drug Use Recreational Drug Use: No - Living Situation & Occupation Living situation: Reports: Occupation: Retired ED ROS GENERAL - Review of Systems Review Of Systems: See Below Constitutional: Denies: Fever, Chills, Diaphoresis HEENT: Reports: No Symptoms Respiratory: Denies: Shortness of Breath Cardiovascular: Reports: Chest Pain (Gone) GI/Abdominal: Denies: Abdominal Pain, Nausea, Vomiting Musculoskeletal: Reports: Shoulder Pain, Arm Pain (Gone) Skin: Reports: No Symptoms Neurological: Denies: Dizziness ED EXAM, GENERAL - Physical Exam Exam: See Below General Appearance: Alert, No Apparent Distress Eye Exam: Bilateral Eye: PERRL Throat/Mouth: Normal Inspection Head: Atraumatic Neck: Supple Respiratory/Chest: No Respiratory Distress, Lungs Clear, Normal Breath Sounds. No: Chest Non-Tender Cardiovascular: Regular Rate, Rhythm GI/Abdominal: Soft, Non-Tender Extremities: Normal Inspection, Normal Range of Motion Skin Exam: Warm, Dry, Intact, Normal Color EKG INTERPRETATION EKG Date: 09/30/18 Rhythm: NSR P-Wave: Present QRS: Normal ST-T: Normal Course - Vital Signs Last Recorded V/S: Last Vital Signs Temp 98.0 F 09/30/18 05:49 Pulse 84 09/30/18 05:49 Resp 14 09/30/18 05:49 BP 155/76 H 09/30/18 05:49 Pulse Ox 98 09/30/18 05:49 - Orders/Labs/Meds Orders: Active Orders 24 hr Category Date Time Status EKG 12 Lead [EKG Documentation Completion] [RC] STAT Care 09/30/18 06:10 Active EKG Documentation Completion [RC] ASDIRECTED Care 09/30/18 05:53 Active EKG 12 Lead [EK] Stat Ther 09/30/18 05:53 Ordered Labs: Laboratory Tests 09/30/18 09/30/18 Range/Units 06:30 06:30 WBC 8.92 (3.98-10.04) K/mm3 RBC 4.29 (3.98-5.22) M/mm3 Hgb 12.7 (11.2-15.7) gm/L Hct 40.4 (34.1-44.9) % MCV 94.2 (79.4-94.8) fl MCH 29.6 (25.6-32.2) pg MCHC 31.4 L (32.2-35.5) g/dl RDW Std Deviation 43.8 (36.4-46.3) fL Plt Count 332 (182-369) K/mm3 MPV 9.7 (9.4-12.3) fl Neut % (Auto) 50.6 (34.0-71.1) % Lymph % (Auto) 33.9 (19.3-51.7) % Catron % (Auto) 7.3 (4.7-12.5) % Eos % (Auto) 7.7 H (0.7-5.8) Baso % (Auto) 0.3 (0.1-1.2) % Neut # (Auto) 4.51 (1.56-6.13) K/mm3 Lymph # (Auto) 3.02 (1.18-3.74) K/mm3 Catron # (Auto) 0.65 H (0.24-0.36) K/mm3 Eos # (Auto) 0.69 H (0.04-0.36) K/mm3 Baso # (Auto) 0.03 (0.01-0.08) K/mm3 Sodium 140 (136-145) mEq/L Potassium 4.2 (3.5-5.1) mEq/L Chloride 102 (98-107) mEq/L Carbon Dioxide 28 (21-32) mEq/L Anion Gap 14.2 (5-15) BUN 24 H (7-18) mg/dL Creatinine 1.0 (0.55-1.02) mg/dL Est Cr Clr Drug Dosing 56.27 mL/min Estimated GFR (MDRD) 55 (>60) mL/min BUN/Creatinine Ratio 24.0 H (14-18) Glucose 174 H (80-115) mg/dL Calcium 9.8 (8.5-10.1) mg/dL Total Bilirubin 0.4 (0.2-1.0) mg/dL AST 28 (15-37) U/L ALT 34 (14-59) U/L Alkaline Phosphatase 142 H (46-116) U/L Troponin I < 0.017 (0.00-0.056) ng/mL Total Protein 7.2 (6.4-8.2) g/dl Albumin 3.5 (3.4-5.0) g/dl Globulin 3.7 gm/dL Albumin/Globulin Ratio 1.0 (1-2) - Re-Assessments/Exams Free Text/Narrative Re-Assessment/Exam: 09/30/18 07:18 Troponin did come back normal. EKG is normal. She's been in sinus rhythm with no ectopy. She states she has had prior cardiac stress test prior to her hip replacement surgery and did well with that. She does state that she is under a lot of stress right now. She also does have a follow-up appointment at the clinic tomorrow. Discharge instructions as documented. Departure - Departure Time of Disposition: 07:18 Disposition: Home, Self-Care 01 Condition: Fair Clinical Impression: Atypical chest pain Referrals: Kamla Peña MD [Primary Care Provider] - Forms: ED Department Discharge Additional Instructions: Continue current medications, go back to taking a daily baby aspirin for now. Follow-up clinic tomorrow, return to ED as needed if symptoms worsening in any way. - My Orders Last 24 Hours: My Active Orders 09/30/18 05:53 EKG Documentation Completion [RC] ASDIRECTED EKG 12 Lead [EK] Stat 09/30/18 06:10 EKG 12 Lead [EKG Documentation Completion] [RC] STAT - Assessment/Plan Last 24 Hours: My Active Orders 09/30/18 05:53 EKG Documentation Completion [RC] ASDIRECTED EKG 12 Lead [EK] Stat 09/30/18 06:10 EKG 12 Lead [EKG Documentation Completion] [RC] STAT
== END 2018-09-30 07:31 | disposition home or self-care (01) ==
LOC: JD.ED 05:41
DX: R07.89 Other chest pain (principal); I10 Essential (primary) hypertension; E11.9 Type 2 diabetes mellitus without complications; E66.9 Obesity, unspecified; M19.90 Unspecified osteoarthritis, unspecified site; Z98.51 Tubal ligation status; Z79.82 Long term (current) use of aspirin; Z79.84 Long term (current) use of oral hypoglycemic drugs; Z79.899 Other long term (current) drug therapy; Z98.49 Cataract extraction status, unspecified eye; Z90.49 Acquired absence of other specified parts of digestive tract
CPT/HCPCS: 36415; 80053; 84484; 85025; 93005; 93010; 99284; 99285-25

== ENCOUNTER 2024-09-16 10:42 | Day surgery (SDC) | payer MEDICARE, OTHER ==
[~2024-09-16 10:42] MED LIST: Sodium Chloride 0.9% 10 ML Syringe FLUSH PRN; Sodium Chloride 0.9% 10 ML Syringe FLUSH SCH
[2024-09-16] MEDS ORDERED: propofoL 500 MG/50 ML 50 ML ONE (11:52)
[2024-09-16] MEDS ORDERED: Lidocaine 1% 4 ML ONE (11:53)
[2024-09-16] MEDS: Lactated Ringers 1,000 ML IV SCH (12:05)
[2024-09-16] MEDS ORDERED: Propofol 200 MG/20 ML SDV ONE ×3 (12:48→13:30)
== END 2024-09-16 14:32 | disposition home or self-care (01) ==
LOC: JD.SDS 10:42
PROVIDERS: ATTEND Surgery
DX: D12.3 Benign neoplasm of transverse colon (principal); D12.2 Benign neoplasm of ascending colon; D12.0 Benign neoplasm of cecum; K20.90 Esophagitis, unspecified without bleeding; K29.50 Unspecified chronic gastritis without bleeding; K44.9 Diaphragmatic hernia without obstruction or gangrene; K57.30 Diverticulosis of large intestine without perforation or abscess without bleeding; E11.40 Type 2 diabetes mellitus with diabetic neuropathy, unspecified; E78.00 Pure hypercholesterolemia, unspecified; I10 Essential (primary) hypertension; Z79.4 Long term (current) use of insulin; Z79.899 Other long term (current) drug therapy; Z88.8 Allergy status to other drugs, medicaments and biological substances
CPT/HCPCS: 43239; 45380; 45381; 45385; J2003; J2704; J7120; 00813; 99100